=== PATIENT | female | born 1970 | race African-American/Black ===

== ENCOUNTER 2019-05-09 19:43 | Inpatient (IN) | payer MEDICAID, OTHER ==
[~2019-05-09] VITALS: Ht 158.8 cm; Wt 81.6 kg
[2019-05-10] MEDS ORDERED: ONDANSETRON HCL 4MG/2ML INJ IV STA (00:32)
[2019-05-10] MEDS ORDERED: MORPHINE SULFATE 4 MG/ML CPJ (NOT FOR IM USE) IV STA (00:32)
[2019-05-10] MEDS ORDERED: ACETAMINOPHEN 325MG TABLET PO STA (00:32)
[2019-05-10] MEDS ORDERED: SODIUM CHLORIDE 0.9% 1000ML BAG (SEPSIS BOLUS) IV ONE (00:45)
[2019-05-10] MEDS ORDERED: CEFTRIAXONE 1 G PREMIX 50 ML IV ONE (00:45)
[2019-05-10 01:26] LABS: BASOPHILS % 0.4 % (0.0-2.0); EOSINOPHILS % 0.1 % (0.0-5.0); LYMPHOCYTES % 14.7 % (20.0-50.0); MEAN CORPUSCULAR HEMOGLOBIN 31.7 pg (28.0-32.0); MEAN CORPUSCULAR VOLUME 90.6 fL (81.0-99.0); MEAN PLATELET VOLUME 9.7 fl (7.4-10.4); MONOCYTES % 11.2 % (2.0-8.0); NEUTROPHILS % 73.6 % (40.0-76.0); PLATELET 137 x1000/uL (130-400); RED BLOOD CELL COUNT 4.42 mill/uL (4.2-5.4)
[2019-05-10 01:34] LABS: CHLORIDE 102 mEq/L (98-107)
[2019-05-10 04:47] LABS: CLARITY URINE CLOUDY (CLEAR); COLOR URINE YELLOW (YELLOW); KETONES URINE 1+ (NEGATIVE); LEUKOCYTE ESTERASE URINE 2+ (NEGATIVE); NITRITE URINE POSITIVE (NEGATIVE); OCCULT BLOOD URINE 2+ (NEGATIVE); PH URINE 5.5 (4.5-8.0); PROTEIN URINE 1+ (NEGATIVE); SPECIFIC GRAVITY URINE 1.022 (1.005-1.030)
[2019-05-10 08:00] VITALS: BP 135/74
[2019-05-10 08:36] VITALS: BP 134/70
[2019-05-10 10:15] VITALS: BP 135/74
[2019-05-10] MEDS ORDERED: MAGNESIUM/ALUMINUM HYDROXIDE/SIMETHICONE 30ML UDC PO PRN (10:15)
[2019-05-10] MEDS ORDERED: ONDANSETRON HCL 4MG/2ML INJ IV PRN (10:15)
[2019-05-10] MEDS ORDERED: CLONIDINE 0.1MG TABLET PO PRN (10:15)
[2019-05-10] MEDS ORDERED: DIPHENHYDRAMINE 50MG/ML VIAL IV PRN (10:15)
[2019-05-10] MEDS: SODIUM CHLORIDE 0.9% 1,000 ML IV SCH (10:37)
[2019-05-10 12:00] VITALS: BP 119/75
[2019-05-10] MEDS: LEVOFLOXACIN 500MG PREMIX 100 ML IV SCH (12:00)
[2019-05-10] MEDS: ACETAMINOPHEN 325MG TABLET PO PRN ×2 (12:56→22:09)
[2019-05-10] MEDS: KETOROLAC 30MG/ML VIAL IV PRN ×2 (13:43→21:47)
[2019-05-10 16:00] VITALS: BP 120/82
[2019-05-10 20:00] VITALS: BP 142/74
[2019-05-10] MEDS ORDERED: IBUPROFEN 400MG TABLET PO PRN (23:00)
[2019-05-11] VITALS: BP 127/67
[2019-05-11 04:00] VITALS: BP 138/66
[2019-05-11] MEDS: SODIUM CHLORIDE 0.9% 1,000 ML IV SCH (04:30)
[2019-05-11 07:44] LABS: BASOPHILS % 0.5 % (0.0-2.0); EOSINOPHILS % 0.3 % (0.0-5.0); HEMATOCRIT. 36.9 % (36.0-48.0); HEMOGLOBIN. 12.9 g/dL (12.0-16.0); LYMPHOCYTES % 16.3 % (20.0-50.0); MEAN CORPUSCULAR HEMOGLOBIN 31.7 pg (28.0-32.0); MEAN CORPUSCULAR VOLUME 90.7 fL (81.0-99.0); MEAN PLATELET VOLUME 10.1 fl (7.4-10.4); MONOCYTES % 14.9 % (2.0-8.0); PLATELET 136 x1000/uL (130-400); RED BLOOD CELL COUNT 4.07 mill/uL (4.2-5.4)
[2019-05-11 08:09] LABS: CHLORIDE 108 mEq/L (98-107)
[2019-05-11 08:18] LABS: PHOSPHORUS 1.9 mg/dL (2.5-4.9)
[2019-05-11 10:44] VITALS: BP 129/75
[2019-05-11] MEDS ORDERED: POTASSIUM PHOS,M-BASIC-D-BASIC 20 MMOL in DEXT 5% WATER 243.3333 ML IV NR (11:30)
[2019-05-11] MEDS: LEVOFLOXACIN 500MG PREMIX 100 ML IV SCH (14:17)
== END 2019-05-11 18:37 | disposition home or self-care (01) | DRG 720 ==
LOC: ER 19:43 → 6EST 05-10 05:13 → EDBEDREQ 05-10 05:22 → EDBEDREQSVC 05-10 05:22 → EDBEDREQTM 05-10 05:22 → ENRESERV 05-10 07:33
PROVIDERS: ADMIT Internal Medicine; ATTEND Internal Medicine
DX: A41.9 Sepsis, unspecified organism (principal); E83.39 Other disorders of phosphorus metabolism; F17.200 Nicotine dependence, unspecified, uncomplicated; N10 Acute pyelonephritis; Z90.711 Acquired absence of uterus with remaining cervical stump; Z98.891 History of uterine scar from previous surgery; Z90.710 Acquired absence of both cervix and uterus; Z79.899 Other long term (current) drug therapy
CPT/HCPCS: 36415; 71045; 76770; 80048; 81003; 83605; 83735; 84100; 87077; 87186; 93970; 96361; 96365; 96375; 99285; J1885; J1956; J2270; J2405; J3490; J7030; J7040; J7060

== ENCOUNTER 2024-05-15 05:14 | Emergency (ER) | payer BC, MEDICAID ==
[~2024-05-15] VITALS: Ht 165.1 cm; Wt 91.0 kg
[2024-05-15 05:22] VITALS: BP 204/96; PULSE 56; RESP 20; TEMP 98.8; O2SAT 100
[2024-05-15 08:22] LABS: BASOPHILS % 0.6 % (0.0-2.0); EOSINOPHILS % 0.5 % (0.0-5.0); HEMATOCRIT. 48.2 % (36.0-48.0); HEMOGLOBIN. 16.1 g/dL (12.0-16.0); MEAN CORPUSCULAR HEMOGLOBIN 31.3 pg (28.0-32.0); MEAN CORPUSCULAR HGB CONC 33.3 g/dL (31.0-37.0); MEAN CORPUSCULAR VOLUME 93.8 fL (81.0-99.0); MEAN PLATELET VOLUME 9.9 fl (7.4-10.4); MONOCYTES % 5.5 % (2.0-8.0); NEUTROPHILS % 78.4 % (40.0-76.0); PLATELET 193 x1000/uL (130-400); RED BLOOD CELL COUNT 5.14 mill/uL (4.2-5.4); RED CELL DISTRIBUTION WIDTH 13.9 % (11.6-14.6); WHITE BLOOD COUNT 9.6 x1000/uL (4.5-11.0)
[2024-05-15 08:25] LABS: PROTHROMBIN TIME 10.7 sec (9.6-11.0)
[2024-05-15 08:32] LABS: CHLORIDE 108 mEq/L (98-107); POTASSIUM 4.3 mEq/L (3.5-5.1); SODIUM 140 mEq/L (136-145)
[2024-05-15 08:33] LABS: CARBON DIOXIDE 25 mEq/L (21-32)
[2024-05-15 08:34] LABS: CALCIUM 9.7 mg/dL (8.7-10.4)
[2024-05-15 08:38] LABS: GLUCOSE 134 mg/dL (70-105)
[2024-05-15 08:39] LABS: UREA NITROGEN BLOOD 11 mg/dL (9-23)
[2024-05-15 08:43] LABS: HCG SCREEN NEGATIVE
[2024-05-15] MEDS: SODIUM CHLORIDE 0.9% 1,000 ML IV ONE (09:18)
[2024-05-15] MEDS: MORPHINE SULFATE 4 MG/ML INJ (FOR IV/IM USE) IV STA (09:32)
[2024-05-15] MEDS: ONDANSETRON HCL 4MG/2ML INJ IV STA (09:32)
== END 2024-05-15 10:43 | disposition home or self-care (01) ==
LOC: ER 05:14 → CANBEDREQ 10:13 → ER 10:43
DX: R10.31 Right lower quadrant pain (principal); E78.00 Pure hypercholesterolemia, unspecified; I10 Essential (primary) hypertension; Z90.710 Acquired absence of both cervix and uterus; Z98.890 Other specified postprocedural states
CPT/HCPCS: 80048; 84703; 83690; 85025; 85610; 36415; 74176; 96361; 96374; 96375; 99285; J2405; J2270; J7030; Z7610 ×2